=== PATIENT | male | born 1985 | race Caucasian/White ===

== ENCOUNTER 2018-09-09 10:05 | Emergency (ER) | payer OTHER, SELFPAY ==
--- NOTE | 2018-09-09 10:13 | ED.GENADUL_ITS ---
Discharge Plan Disposition Patient Disposition: HOME Condition: Good Discharge Details Chief Complaint: Sorethroat Clinical Impression: URI (upper respiratory infection), Acute sore throat, Strep pharyngitis Primary Care Provider: Karl Estrada ED Provider: Drew Childs Home Meds and New Rx's Prescriptions: New fluticasone propionate [fluticasone] 16 GM spray,suspension 1 spray NS BID Qty: 9.9 RF: 0 sodium chloride [Saline Mist] 0.65 % aerosol,spray 1 spray CALE Q1-4H PRN (Reason: dry nasal passages) Qty: 15 RF: 0 loratadine 10 mg tablet 10 mg PO DAILY Qty: 20 RF: 0 amoxicillin 500 mg tablet 500 mg PO BID Qty: 20 RF: 0 Discharge Instructions Instructions: Pharyngitis (ED), Upper Respiratory Infection (ED) Additional Instructions: Please take the antibiotic as directed. please take a maximum of 1000 mg of Tylenol every 6 hours and 6-800 mg of ibuprofen every 6 hours. if you notice any worsening of your symptoms, or any new symptoms such as vomiting, diarrhea, fever, chills, shortness of breath, chest pain, numbness, weakness, or fainting , please return immediately to the emergency department for reevaluation. Please follow up with your primary care provider as soon as possible for reassessment and reevaluation. As always, it was a pleasure participating in your medical care today. Referrals: Karl Estrada [Primary Care Provider] - Medical Decision Making This is a 33-year-old male with no significant past medical history who presents today for evaluation of sore throat fatigue subjective fever and malaise for the last week. Sore throat is been present over the last 3-4 days. He has been taking NyQuil and DayQuil, but has had no significant improvement of his symptoms with this. He denies any significant cough, headache, or neck pain. He denies any other concerning red flags. Vital signs are stable and reassuring. Minimal erythema in the posterior oropharynx. We will evaluate for strep. The patient is well out of the treatment window for influenza, and so I do not think testing is indicated or would be beneficial at this time. If the strep is negative I feel the patient signs and symptoms most likely consistent with a viral upper respiratory infection. 10:33 AM This is returned positive. Will start amoxicillin in addition to nasal spray and antihistamines. Patient continues to appear well, with no signs of sepsis or meningitis. We discussed red flags which to return. I have extensively reviewed the treatment plan and discharge instructions with the patient. I have addressed all patient concerns at this time. The patient was made aware of what symptoms to monitor for that would warrant a return to the emergency department. Discussed the plan with the patient, they demonstrate verbal understanding and agreement with our assessment and plan at this time. HPI General Date/Time Provider Initiated Documentation: 09/09/18 10:12 . HPI Narrative: This is a pleasant 33-year-old male with no significant past medical history who presents today for evaluation of sore throat and upper respiratory- like symptoms for the last week. Patient states is gradually been worsening, and over the last 3 days he has had a notable increase in his sore throat. He has a minimal cough that is nonproductive he denies headache or neck pain. He does admit notable fatigue and malaise. He denies any chest pain, shortness of breath, or vomiting, significant diarrhea, numbness, tingling, or weakness. He does admit to chills and night sweats. He denies any IV or illicit drug use. He denies any recent surgeries. No other complaints at this time. No other modifying factors. He does admit to multiple other sick contacts at his work Related Data Home Medications Medication Instructions Recorded Confirmed amoxicillin 500 mg PO BID #20 tab 09/09/18 fluticasone propionate 1 spray NS BID #9.9 gm 09/09/18 [fluticasone] loratadine 10 mg PO DAILY #20 tab 09/09/18 sodium chloride [Saline Mist] 1 spray CALE Q1-4H PRN #15 ml 09/09/18 Previous Rx's Medication Instructions Recorded amoxicillin 500 mg PO BID #20 tab 09/09/18 fluticasone propionate 1 spray NS BID #9.9 gm 09/09/18 [fluticasone] loratadine 10 mg PO DAILY #20 tab 09/09/18 sodium chloride [Saline Mist] 1 spray CALE Q1-4H PRN #15 ml 09/09/18 Allergies Allergy/AdvReac Type Severity Reaction Status Date / Time No Known Allergies Allergy Unverified 09/09/18 10:20 Review of Systems Review of Systems All systems reviewed & are unremarkable except as noted in HPI and below PFSH Social History Smoking/Tobacco Use Status: Never Alcohol Intake: never Substance use type: does not use Do you feel safe at home: Yes Do you feel safe in your relationship?: Yes Exam Narrative Exam Narrative: 1.Const: Well-nourished, Well-developed, appearing stated age 2.Eyes: PERRL, no conjunctival injection, and symmetrical lids. 3.ENT: Atraumatic external nose and ears. Moist MM. Neck: Symmetric, trachea midline, No thyromegaly. Minimal erythema in the posterior oropharynx. No evidence of peritonsillar exudate, or peritonsillar abscess. No evidence of Sami's angina. Patient demonstrates good movement of cervical neck. There is no nuchal rigidity, no nuchal tenderness. Patient is able to flex the neck without any difficulty or significant pain. Negative Kernig's and Brudzinski sign. 4.CVS: +S1/S2, No murmurs or gallops. Peripheral pulses 2+ and equal in all extremities. Brisk capillary refill in all extremities. 5.RESP: Unlabored respiratory effort. Clear to auscultation bilaterally. No wheezes rales or rhonchi 6.GI: Soft, Nontender/Nondistended, No hepatosplenomegaly. No guarding or rebound. 7.MSK: Normocephalic/Atraumatic, Extremities w/o deformity or ttp No cyanosis or clubbing, Normal movement of all extremities 8.Skin: Warm, Dry. No rashes or lesions. 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 Sensation grossly intact, no focal neurologic deficits. 10.Psych: (AAO) x3. Appropriate mood and affect
[2018-09-09 10:17] VITALS: BP 118/64; PULSE 89; RESP 15; TEMP 37.4; O2SAT 93
--- NOTE | 2018-09-09 10:17 | NUR.NOTE ---
pt states that he has had a fervor and sore throat for the past week and it has progressively been getting worse
[2018-09-09] MEDS: Acetaminophen 500 MG TAB 1000 MG PO (10:32)
[2018-09-09] MEDS: Ibuprofen 800 MG TAB PO (10:32)
[2018-09-09 10:41] VITALS: BP 118/64; PULSE 89; RESP 15; TEMP 37.4; O2SAT 94
== END 2018-09-09 10:36 | disposition home or self-care (01) ==
PROVIDERS: Emergency Provider Student in an Organized Health Care Education/Training Program; PCP Family Medicine
DX: J02.0 Streptococcal pharyngitis (principal); J06.9 Acute upper respiratory infection, unspecified
CPT/HCPCS: 87880; 99283